=== PATIENT | male | born 1995 | race American Indian/Alaskan Native ===

== ENCOUNTER 2018-02-28 12:26 | Emergency (ER) | payer MEDICARE, SELFPAY ==
[2018-02-28 12:27] VITALS: BP 136/82; PULSE 66; RESP 14; TEMP 36.7; O2SAT 95; BMI 26.2
[2018-02-28] MEDS: 0.9% Normal Saline 1,000 ML 150 ML IV (13:26)
[2018-02-28 13:31] LABS: Absolute Lymphocyte Count 1.88 X10^3/ul (0.83-4.51); Basophil# 0.02 X10^3/uL; Basophil% 0.3 % (0-1); Eosinophil# 0.09 X10^3/uL; Eosinophils% 1.3 % (0-5); Hematocrit 45.7 % (40-54); Hemoglobin 15.2 g/dl (13.0-16.5); Lymphocyte # 1.88 X10^3/ul (4.0); Lymphocyte % 27.9 % (19-41); Mean Corp Hgb Conc 33.3 g/gl (32-36); Mean Corpuscular Hgb 28.5 pg (27.0-32.0); Mean Corpuscular Volume 85.6 fL (80-94); Mean Platelet Vol. 9.2 fl (6.2-12.0); Monocyte# 0.76 X10^3/uL; Monocyte% 11.3 % (0-10); Neutrophil # 3.99 X10^3/uL (2.7-7.7); Neutrophil % 59.1 % (47-70); Platelet Count 239 K/mm3 (150-450); RBC Distribution Width CV 12.7 % (11.6-14.6); RBC Distribution Width SD 39.7 fl (35.1-43.9); Red Blood Count 5.34 M/mm3 (4.6-6.2); White Blood Count 6.8 K/mm3 (4.4-11.0)
[2018-02-28 13:32] LABS: POSITIVE COUNT NO; POSITIVE DIFFERENTIAL NO; POSITIVE MORPHOLOGY NO
--- NOTE | 2018-02-28 13:32 | CT_ITS ---
STUDY: CT PELVIS WITHOUT CONTRAST REASON FOR EXAM: Male, 22 years old. Pilonidal cyst. Possible abscess. RADIATION DOSAGE (If Supplied By Facility): CTDIvol = ( 28.21 ) mGy, DLP = ( 762.41 ) mGycm TECHNIQUE: Transaxial imaging of the pelvis was performed with oral contrast, and without intravenous administration of contrast material. Individualized dose optimization techniques were used for this CT. COMPARISON: None. FINDINGS: There is a 1.9 cm x 2.9 cm slightly irregular soft tissue density with stranding along the periphery just superficial to the tip of the coccyx in the midline. This may represent a focal abscess. Clinical correlation is recommended. Normal urinary bladder. Small bilateral benign-appearing inguinal lymph nodes. Normal visualized small intestine. Normal visualized colon. There is no pelvic fluid. There is no pelvic mass lesion or lymphadenopathy. Normal visualized pelvic arteries. Normal abdominal wall. Normal osseous structures. CT/Pelvis without IV Contrast IMPRESSION: 1.9 cm x 2.9 cm slightly irregular soft tissue density with stranding in the midline overlying the tip of the coccyx. This may represent a tiny abscess. Electronically Signed: Regan Mabry MD at 13:56 EDT Tel [phone], Service support ,
[2018-02-28 13:53] LABS: Anion Gap 6 (5-15); BUN 10 mg/dL (7-18); BUN/Creat Ratio 13.1 RATIO (10-20); Calcium,Total 8.9 mg/dL (8.5-10.1); Chloride 106 mmol/L (98-107); Creatinine, Serum 0.76 mg/dL (0.70-1.30); EST Glomerular Filtration Rate 134 mL/min (>60); Est Glom Filt Rate - Afr Amer 163 mL/min (>60); Estimated Creatinine Clearance 152.46 ml/min; Glucose 88 mg/dL (74-106); Potassium 4.1 mmol/L (3.5-5.1); Sodium Level 143 mmol/L (136-145)
--- NOTE | 2018-02-28 14:27 | ED.DCSUM_ITS ---
- ER Visit Summary Date of Service: 02/28/18 Chief Complaint: [Pilonidal cyst] History of Present Illness: The patient is a 22 M [presents to the emergency department with complaint of cyst on his tailbone it has been there for about a month. Patient has history of incision and drainage of same cyst about 2 [address] ago [address] [facility]. Patient had a wound VAC on it initially. Patient subsequently since it had one other incision and drainage of it. Patient noticed a month ago increased discomfort and swelling to the posterior sacral area. Patient is having drainage from the area. Patient denies any fever.] Physical Examination: [HEENT-PERRLA, EOMI. Cranial nerves II through XII grossly intact. TMs clear. Mucous membranes moist. No adenopathy. Cardiovascular-regular rate and rhythm without murmur or ectopy Lungs-clear to auscultation, chest wall stable without crepitus or subcu emphysema Abdomen-normoactive bowel sounds, soft, nontender, no rebound or rigidity, no peritoneal signs. Evaluation of the perirectal area reveals old incisions 1 more superior and one more inferior. The superior incision has small amount of drainage noted from it. By pressing on and I am not able to express much purulent debris. No significant fluctuance noted. No discrete abscess palpated. Extremities-intact ?4, normal range of motion, normal pulses, atraumatic] Test Results: [CBC with differential was normal. Chemistries were normal. CT scan of the pelvis obtained showed a 1.9 cm x 2.9 cm slightly irregular soft tissue density with stranding in the midline overlying the tip of the coccyx may represent a tiny abscess.] Emergency Department Course and Treatment: [I discussed case with Dr. Jan Shields who is on-call for general surgery who will see patient in the office. I will start patient on clindamycin. Treatment Plan: [Clindamycin and follow-up with general surgeon in the office.] Disposition: [Discharged home in stable condition] Impression: [Pilonidal cyst/abscess] This note was generated with [employer] software. It may contain incorrect words, spelling, and punctuation that were not noted in review of the chart prior to signing ED Disposition - Plan for ED Patient: Chief Complaint: Abscess Referrals: Care Physician,No Primary [Primary Care Provider] -
--- NOTE | 2018-02-28 14:27 | ED.DEP ---
ED Disposition - Plan for ED Patient: Chief Complaint: Abscess Instructions: ED Cyst Pilonidal Infec Abx Only Prescriptions: Clindamycin HCl [Cleocin] 300 mg PO Q6H #40 cap Referrals: Care Physician,No Primary [Primary Care Provider] - Jan Bullock MD [STAFF PHYSICIAN] - 3-5 Days
[2018-02-28] MEDS: Clindamycin HCl 150 MG Capsule 300 MG PO (14:45)
[2018-02-28 14:52] VITALS: PULSE 82; RESP 16
== END 2018-02-28 14:53 | disposition home or self-care (01) ==
PROVIDERS: Emergency Provider Emergency Medicine
DX: L05.01 Pilonidal cyst with abscess (principal)
CPT/HCPCS: 72192; 80048; 85025; 96360; 99283; J7030

== ENCOUNTER 2020-09-10 12:04 | Emergency (ER) | payer MEDICAID, SELFPAY ==
[2020-09-10 12:07] VITALS: BP 123/82; PULSE 97; RESP 16; TEMP 36.3; O2SAT 98; BMI 26.4
[2020-09-10] MEDS: 0.9% Normal Saline 1,000 ML 1000 ML IV (12:59)
[2020-09-10] MEDS: Ondansetron 4 MG/2 ML Vial IV (12:59)
[2020-09-10] MEDS: Ketorolac 15 MG/ML Vial IV (12:59)
--- NOTE | 2020-09-10 13:54 | ED.DCSUM_ITS ---
- ER Visit Summary Date of Service: 09/10/20 Chief Complaint: Not feeling well History of Present Illness: The patient is a 25 M presenting stating that he has just not been feeling well for the past week. He has had chills, rhinorrhea, sore throat, cough, nausea, diarrhea, headache. He denies known exposure to Covid but he works in the public. He states he was unable to go to work because he was not feeling well. Physical Examination: Vitals are stable. Patient is afebrile. Alert no acute distress. Pulse ox 98% on room air HEENT exam is unremarkable. Pharynx is normal Neck is supple. No meningismus Lungs are clear and equal bilaterally. Heart is regular rate and rhythm. Abdomen is soft nontender nondistended. Extremities are unremarkable. Skin is warm and dry. No focal neurologic deficit. Remainder of exam is unremarkable. Emergency Department Course and Treatment: Patient given IV fluids, Toradol, Zofran. Chest x-ray shows no acute process. Covid is positive. Patient's pulse ox remains 98% on room air. He is advised to quarantine. He is given a note for work. Advised to follow-up with his primary care physician. Advised return to ED for worsening complaints. Disposition: Discharge home Impression: COVID-19 illness This note was generated with [employer] dictation software. It may contain incorrect words, spelling, and punctuation that were not noted in review of the chart prior to signing ED Disposition - Plan for ED Patient: Referrals: Yury Krueger DO [Primary Care Provider] -
--- NOTE | 2020-09-10 14:25 | RAD_ITS ---
STUDY: X-RAY CHEST REASON FOR EXAM: Male, 25 years old. x2 days of cough, sore throat, headache, diarrhea TECHNIQUE: Single AP portable view of the chest. COMPARISON: None. FINDINGS: The lungs are clear and expanded. There is no demonstrated pleural abnormality. Normal size heart. Normal mediastinum and willie. Normal visualized pulmonary arteries. Normal visualized aortic arch and descending thoracic aorta. Normal visualized thoracic spine. Normal visualized ribs, clavicles, and shoulders. There is no demonstrated abnormality of the visualized soft tissue structures of the upper abdomen. RAD/Chest 1 View (Portable) IMPRESSION: Normal x-ray examination of the chest. Electronically Signed: Regan Mabry, at 14:41 EST , Service support ,
--- NOTE | 2020-09-10 15:00 | ED.DEP ---
ED Disposition - Plan for ED Patient: Instructions: Coronavirus Disease 2019 (COVID-19): Caring for Yourself or Others Referrals: Yury Krueger DO [Primary Care Provider] -
[2020-09-10 15:16] VITALS: BP 134/72; PULSE 90; RESP 17; O2SAT 97
== END 2020-09-10 15:17 | disposition home or self-care (01) ==
LOC: ED 12:34
PROVIDERS: Emergency Provider Emergency Medicine; PCP Student in an Organized Health Care Education/Training Program
DX: U07.1 COVID-19 (principal)
CPT/HCPCS: 71045; 87426; 96374; 96375; 99283; J7030; J2405